=== PATIENT | female | born 1965 | race Caucasian/White ===

== ENCOUNTER 2017-01-28 08:51 | Day surgery (SDC) | payer BC ==
[2017-01-28] MEDS ORDERED: Bupivacaine HCl 0.25% PF (10 ml) Inj ONE ×2 (11:07)
[2017-01-28] MEDS ORDERED: Bupivacaine-Epi 0.5%-1:200,000 PF Inj ONE (11:07)
[2017-01-28] MEDS ORDERED: Midazolam 2 MG/2 ML VIAL ONE (11:07)
[2017-01-28] MEDS ORDERED: Propofol 10 mg/ml Inj (20 ML) ONE (11:07)
[2017-01-28] MEDS ORDERED: Lidocaine 2% w Epi 1:100,000 Inj IJ ONE (11:07)
[2017-01-28] MEDS ORDERED: ceFAZolin IV 1 gm in Dextrose 1 GM/50 ML BAG IVPB ONE (11:07)
[2017-01-28] MEDS ORDERED: Lactated Ringer's 1,000 ML IV ONE (11:10)
[2017-01-28] MEDS ORDERED: Bacitracin Ointment 30 GM TUBE ONE (11:35)
[2017-01-28] MEDS ORDERED: HYDROmorphone 0.5 mg/0.5 ml ISec IVP PRN (11:43)
[2017-01-28 12:45] VITALS: O2SAT 100
[2017-01-28] MEDS ORDERED: Oxycodone/Acetaminophen 5/325 mg Tab PO PRN (14:00)
[2017-01-28 14:56] VITALS: BP 103/46; PULSE 68; RESP 20; TEMP 97.9
--- NOTE | 2017-01-28 17:30 | OP ---
PROCEDURE DATE: 01/28/2017 PREOPERATIVE DIAGNOSIS: Right temporal scalp mass. POSTOPERATIVE DIAGNOSIS: Right temporal scalp mass. PROCEDURE PERFORMED: Wide and deep excision of right temporal scalp mass with adjacent tissue transf er closure. SURGEON: Jorge Cummings MD. ANESTHESIA: General. ESTIMATED BLOOD LOSS: 30 mL. POSTOPERATIVE CONDITION: Stable. INDICATIONS FOR SURGERY: This is a 51-year-old female with a recurrent right scalp mass which has gr own to a large size and now will undergo a wide and deep excision. PROCEDURE: The patient taken to the operating room and IV sedation was administered and the scalp wa s shaved, prepped and draped. Local anesthesia was administered via a scalp block around the mass. A generous elliptical incision was made surrounding the 5 cm mass and it was completely dissected nelson e into the scalp and aponeurosis. Bleeding was controlled using the Bovie. A large branch of the te mporal artery was repaired with 6-0 Prolene. The wound was irrigated with saline. Generous tissue f laps were raised using the Bovie and a greater than 30 sq cm adjacent tissue transfer closure was per formed using multiple layers of heavy Monocryl, subcuticular Monocryl, and skin clips. The patient t olerated the procedure well, returned to recovery room in stable condition. Jorge Cummings MD cc: [id number] TT: 01/28/2017 17:30:02 dc
== END 2017-01-28 14:10 | disposition home or self-care (01) ==
LOC: C.SDS 08:51
PROVIDERS: ATTEND Surgery
DX: L72.11 Pilar cyst (principal)
CPT/HCPCS: 11426; 82948; 88307; J0690; J2250; J2704; J3010; J7120